=== PATIENT | male | born 1970 | race Native Hawaiian/Other Pacific Islander ===

== ENCOUNTER 2017-06-10 07:44 | Outpatient (CLI) | payer BC | END 2017-06-10 22:15 | disposition home or self-care (01) | LOC: NM 07:44 | DX: R00.2 Palpitations (principal); R07.89 Other chest pain | CPT/HCPCS: A9500 ==

== ENCOUNTER 2018-01-21 09:53 | Emergency (ER) | payer BC ==
[~2018-01-21] VITALS: Ht 182.9 cm; Wt 104.3 kg
[2018-01-21 09:58] VITALS: TEMP 97.7
[2018-01-21 11:01] LABS: PLATELET COUNT 252 K/uL (142-355)
[2018-01-21 11:07] LABS: POTASSIUM 3.3 mmol/L (3.6-5.2); SODIUM 139 mmol/L (136-145)
[2018-01-21 14:50] VITALS: BP 136/87
== END 2018-01-21 14:50 | disposition home or self-care (01) ==
LOC: ED 09:53
DX: R53.1 Weakness (principal); R42 Dizziness and giddiness
CPT/HCPCS: 36415; 80053; 80307; 81000; 82550; 82553; 84443; 84484; 84550; 85027; 93005; 96374; 99284; J2405

== ENCOUNTER 2018-09-08 12:52 | Outpatient (CLI) | payer BC | END 2018-09-08 23:11 | disposition home or self-care (01) | LOC: MRI 12:52 | DX: M47.22 Other spondylosis with radiculopathy, cervical region (principal) ==

== ENCOUNTER 2020-12-05 07:42 | Day surgery (SDC) | payer BC ==
[2020-11-28 13:38] LABS: PLATELET COUNT 261 K/uL (142-355)
[2020-11-28 13:43] LABS: POTASSIUM 3.4 mmol/L (3.6-5.2)
== END 2020-12-05 10:26 | disposition home or self-care (01) ==
LOC: OR 07:42
PROVIDERS: ATTEND Internal Medicine
PROC: 0DJD8ZZ Inspection of Lower Intestinal Tract, Via Natural or Artificial Opening Endoscopic (ICD-10-PCS; principal; 2020-12-05)
DX: Z12.11 Encounter for screening for malignant neoplasm of colon (principal); Z20.822 Contact with and (suspected) exposure to COVID-19
CPT/HCPCS: 80053; 85027; 87635; J2001; U0003

== ENCOUNTER 2021-01-09 15:00 | Outpatient (CLI) | payer BC, OTHER | END 2021-01-09 19:14 | disposition home or self-care (01) | LOC: LAB 15:00 | PROVIDERS: ATTEND Internal Medicine | DX: J02.9 Acute pharyngitis, unspecified (principal); R09.81 Nasal congestion; Z20.822 Contact with and (suspected) exposure to COVID-19 | CPT/HCPCS: 87635; G2023; U0003 ==

== ENCOUNTER 2021-06-02 09:12 | Outpatient (CLI) | payer BC | END 2021-06-02 19:02 | disposition home or self-care (01) | LOC: RAD 09:12 | PROVIDERS: ATTEND Internal Medicine | DX: R06.02 Shortness of breath (principal) ==

== ENCOUNTER 2021-06-05 13:43 | Outpatient (CLI) | payer BC | END 2021-06-05 21:14 | disposition home or self-care (01) | LOC: RESP 13:43 | PROVIDERS: ATTEND Internal Medicine | DX: R06.02 Shortness of breath (principal); G47.33 Obstructive sleep apnea (adult) (pediatric); Z87.891 Personal history of nicotine dependence; R94.6 Abnormal results of thyroid function studies; E06.9 Thyroiditis, unspecified; Z09 Encounter for follow-up examination after completed treatment for conditions other than malignant neoplasm ==